=== PATIENT | male | born 2005 | race African-American/Black ===

== ENCOUNTER 2025-05-28 20:24 | Emergency (ER) | payer SELFPAY ==
[2025-05-28 20:46] LABS: Glucose, Urine (Dipstick) Normal (Negative); Leukocyte 25 (Negative); Protein, Urine (Dipstick) Negative (Neg-Trace); Specific Gravity, Urine 1.015 (1.005-1.030)
[2025-05-28 21:11] LABS: Bacteria/HPF None Seen HPF (None Seen); CAUTI Indications for Culture Dysuria,urgency,freq; RBC/HPF 0-3 HPF (0-3); Urine Culture Reflex No No
[2025-05-28] MEDS ORDERED: metroNIDAZOLE 500 MG TAB ONE (21:27)
[2025-05-28] MEDS ORDERED: cefTRIAXone (ROCEPHIN) 500 MG VIAL ONE (21:27)
[2025-05-28] MEDS ORDERED: Azithromycin 250 MG TAB ONE (21:27)
[2025-05-29 01:04] LABS: Chlam.trachomatis by PCR,Urine Not Detected (NotDetected); GC N.gonorrhoeae PCR,UrineVOID Not Detected (NotDetected)
== END 2025-05-28 22:23 | disposition home or self-care (01) ==
LOC: CSHERS 20:24
DX: N39.0 Urinary tract infection, site not specified (principal); R31.9 Hematuria, unspecified
CPT/HCPCS: 74176; 81001; 87491; 87591; 96372; J0696